=== PATIENT | male | born 1960 | race Caucasian/White ===

== ENCOUNTER 2018-01-03 12:15 | Inpatient (IN) | payer OTHER ==
[~2018-01-03] VITALS: Ht 172.7 cm; Wt 64.0 kg
[2018-01-03] MEDS ORDERED: ONDANSETRON INJ 2 MG/ML 2 ML VIAL IV STA (12:27)
[2018-01-03] MEDS ORDERED: SODIUM CHLORIDE 0.9% 1000ML 1,000 ML IV STA (12:27)
[2018-01-03] MEDS ORDERED: ATROPINE SULFATE 0.1 MG/ML 5ML SYR IV STA ×2 (12:42→20:37)
[2018-01-03 12:57] LABS: BASO % 0.1 %; BASO ABS # 0.01 K/uL (0-0.2); EOS % 0.5 %; EOS ABS # 0.05 K/uL (0-0.5); HEMATOCRIT 48.7 % (42-52); IG# 0.02 K/uL (0.00-0.02); LYMPH % 12.7 %; LYMPH ABS # 1.26 K/uL (1.2-3.4); MEAN CELL VOLUME 92.6 fL (80-100); MEAN CORPUSCULAR HEMOGLOBIN 32.3 pg (25-34); MEAN CORPUSCULAR HGB CONC 34.9 g/dl (32-36); MONO % 2.8 %; MONO ABS # 0.28 K/uL (0.11-0.59); NEUT % 83.7 %; NEUT ABS # 8.27 K/uL (1.4-6.5); PLATELET COUNT 138 K/uL (130-400); RED CELL DISTRIBUTION WIDTH CV 13.2 % (11.5-14.5); RED CELL DISTRIBUTION WIDTH SD 45.1 fL (36.4-46.3); WHITE BLOOD COUNT 9.89 K/uL (4.8-10.8)
[2018-01-03 13:03] LABS: ISTAT CREATININE 1.2 mg/dl (0.6-1.3); ISTAT IONIZED CALCIUM 1.06 mmol/l (1.12-1.32); ISTAT POTASSIUM 4.4 mEq/L (3.3-5.0)
[2018-01-03 13:11] LABS: INR 0.9 (0.9-1.1); PTT PATIENT 20.6 SECONDS (21.0-31.0)
[2018-01-03 13:15] LABS: CALCIUM 9.3 mg/dl (8.5-10.1); CREATININE 1.25 mg/dl (0.60-1.40); POTASSIUM 4.2 mmol/L (3.5-5.1)
--- NOTE | 2018-01-03 13:15 | DIAGNOSTIC IMAGING REPORT ---
SINGLE VIEW CHEST CLINICAL HISTORY: Dyspnea. FINDINGS: An AP, portable, upright chest radiograph is obtained. No prior studies are available for comparison at the time of dictation. The examination is degraded by portable technique and patient rotation. The cardiomediastinal silhouette is unremarkable. Emphysematous change is suggested. Mild bibasilar atelectasis is observed. No airspace consolidation or large pleural effusion is identified. A small calcified granuloma is noted at the left lung base. No pneumothorax is seen. The bony thorax is grossly intact. IMPRESSION: 1. Suspect emphysema. 2. No airspace consolidation or pleural effusion is identified. Electronically signed by: Josef Vazquez M.D. 01/03/2018 1:14 PM Dictated Date/Time: 01/03/2018 1:11 PM
--- NOTE | 2018-01-03 13:27 | DIAGNOSTIC IMAGING REPORT ---
CT SCAN OF THE BRAIN WITHOUT IV CONTRAST CLINICAL HISTORY: Lower extremity weakness. Blurry vision. COMPARISON STUDY: No priors. TECHNIQUE: Unenhanced axial CT scan of the brain is performed from the vertex to the skull base. A dose lowering technique was utilized adhering to the principles of ALARA. CT DOSE: 537.48 mGy.cm FINDINGS: Brain parenchyma: The brain parenchyma is normal in appearance. There is no hemorrhage, mass effect, or evidence of acute territorial ischemia by CT criteria. Pappas-white matter is preserved. No extra-axial fluid collection is seen. There are small foci of gas within the cavernous sinus and within the cisterns at the skull base. This is likely related to IV placement. Ventricles, sulci, cisterns: Normal in configuration. Intracranial vasculature: There is atherosclerotic calcification of the cavernous carotid arteries. Calvarium: Unremarkable. Sinuses and mastoids: The visualized paranasal sinuses are clear. There is a trace left mastoid effusion. The right mastoid air cells are well pneumatized. Orbits: The bony orbits are grossly intact. IMPRESSION: 1. There is no hemorrhage, mass effect, or evidence of acute territorial ischemia by CT criteria. 2. Small foci of gas within the cavernous sinuses and the cisterns at the skull base are likely related to IV placement. Electronically signed by: Josef Vazquez M.D. 01/03/2018 1:25 PM Dictated Date/Time: 01/03/2018 1:23 PM
[2018-01-03 13:32] LABS: CKMB 2.1 ng/ml (0.5-3.6); TOTAL PROTEIN 8.1 gm/dl (6.4-8.2)
[2018-01-03 13:54] LABS: INFLUENZA B ANTIGEN Neg for Influ B (NEG)
[2018-01-03] MEDS ORDERED: NURSING VERBAL MED ORDER ONE ×2 (14:00→18:00)
[2018-01-03] MEDS ORDERED: OPTIRAY 320 IV PRN (14:00)
--- NOTE | 2018-01-03 14:23 | DIAGNOSTIC IMAGING REPORT ---
CT ANGIOGRAM OF THE CHEST CLINICAL HISTORY: Atypical chest pain. COMPARISON STUDY: Chest x-ray dated 01/03/2018. TECHNIQUE: Following the IV administration of 101 cc of Optiray 320, CT angiogram of the chest was performed from the upper abdomen to the thoracic inlet utilizing the pulmonary embolus protocol. Images are reviewed in the axial, sagittal, and coronal planes. 3-D MIPS images are created and assessed. IV contrast was administered without complication. A dose lowering technique was utilized adhering to the principles of ALARA. CT DOSE: 299.71 mGy.cm FINDINGS: Thyroid: Imaged portions of the thyroid gland are normal in size and attenuation. Thoracic aorta: There is mild atherosclerotic calcification of the thoracic aorta, which is normal in caliber and demonstrates 4-vessel variant arch anatomy. No dissection is seen. Pulmonary vasculature: The pulmonary trunk is normal in caliber. There are no filling defects identified in main, lobar, or segmental pulmonary branches to suggest pulmonary embolus. Heart: The heart is top normal in size and without pericardial effusion. There are coronary artery calcifications. Lungs and pleural spaces: Moderate emphysematous change is identified. No airspace consolidation or pleural effusion is seen. The trachea and central airways are clear. Dependent atelectasis is noted. Linear scarring versus atelectasis is present at both lung bases. There is an 8 mm pulmonary nodule at the left lung base seen on image #97. This contains a punctate calcification. Mediastinum: There is no mediastinal lymphadenopathy. Beatrice: Clear. Axillae: There is no axillary lymphadenopathy. Upper abdomen: The liver is enlarged and there is severe hepatic steatosis. Partially a small hiatal hernia is noted. Surgical clips are suggested in the upper abdomen. Skeletal structures: No lytic or blastic bony lesions are seen. IMPRESSION: 1. There is no evidence of pulmonary embolus in the main, lobar, or segmental pulmonary arteries. 2. Emphysema. 3. There is no airspace consolidation or pleural effusion. 4. An 8 mm indeterminant pulmonary nodule is seen at the left lung base. This should be followed as per the Fleischner criteria. See below. 5. Severe hepatic steatosis. 6. Additional findings as above. Please refer to below summary of Fleischner criteria recommendations for follow-up of incidental CT nodules (Amilcar Walls, Guidelines for management of small pulmonary nodules detected on CT scans: A statement from the Fleischner Society, Radiology 237: [phone].) SOLID NODULES Solitary nodule size: <6 mm * low risk patients: no follow-up needed * high risk patients: optional CT at 12 months Solitary nodule size: 6-8 mm * low risk patients: follow-up at 6-12 months, then consider further follow-up at 18-24 months * high risk patients: initial follow-up CT at 6-12 months and then at 18-24 months if no change Solitary nodule size: >8 mm * either low or high risk patients - consider follow-up CT at 3 months, and/or CT-PET, and/or biopsy Multiple nodules size: <6 mm * low risk patients: no routine follow-up * high risk patients: optional CT at 12 months Multiple nodules size: 6-8 mm * low risk patients: follow-up at 3-6 months, then consider further follow-up at 18-24 months * high risk patients: follow-up at 3-6 months, then at 18-24 months if no change Multiple nodules size: >8 mm * low risk patients: follow-up at 3-6 months, then consider further follow-up at 18-24 months * high risk patients: follow-up at 3-6 months, then at 18-24 months if no change Note: newly detected indeterminate nodule in persons 35 years of age or older. * low risk patients: minimal or absent history of smoking and/or other known risk factors * high risk patients: history of smoking or of other known risk factors (e.g. first degree relative with lung cancer, or exposure to asbestos, radon, uranium) * if a nodule up to 8 mm is partly solid or is ground glass further follow-up is required after 24 months to exclude possible slow growing adenocarcinoma (TONY) SUBSOLID NODULES Solitary pure ground-glass nodule * nodule size <6 mm - no CT follow-up required * nodule size >=6 mm - follow-up CT at 6-12 months, then every 2 years until 5 years Solitary part-solid nodule * nodule size <6 mm - no CT follow-up required * nodule size >=6 mm - follow-up CT at 3-6 months. If unchanged, and solid component remains <6 mm, then annual follow-up for 5 years Multiple subsolid nodules * nodule size <6 mm - follow-up CT at 3-6 months, consider further follow-up at 2 and 4 years if stable * nodule size >=6 mm - follow-up CT at 3-6 months, subsequent management based on the most suspicious nodule(s) Electronically signed by: Josef Vazquez M.D. 01/03/2018 2:21 PM Dictated Date/Time: 01/03/2018 2:14 PM
--- NOTE | 2018-01-03 14:43 | EMERGENCY ROOM VISIT NOTE ---
ED Visit Note First contact with patient: 12:18 I did evaluate and examine this patient myself. I did guide management for the patient. I agree with the PA's assessment as discussed. Please see the PAs dictation for further details. I did independently review the x-rays, CT scan, twelve-lead EKG and blood work. The patient is presenting with sudden onset of vomiting with shortness of breath. He denies any abdominal pain. He states he has some tightness to his chest. He feels weak all over. His examination is remarkable for bradycardia with a heart rate in the 40s. He also has some tenderness in the epigastric region but he thinks this is from the multiple episodes of vomiting. He did not notice any pain prior to palpation of the abdomen. His EKG shows sinus bradycardia. He did continue to dip down into the 30s. He is normotensive but he complained of severe shortness of breath. I did treat him with atropine 0.5 mg IV. His heart rate did go up into the 60s and 70s. He did feel somewhat better. His d-dimer and troponin are elevated. We did do a CT of the chest which did not show any evidence of pulmonary embolism. I did reassess the patient. His heart rate is in the 60s. He is feeling better. He has no wheezing on auscultation. He will be admitted to the hospital for further evaluation and cardiology consultation. I have personally spent 33 minutes of critical care time in the direct management of this patient. This includes bedside care, interpretation of diagnostic studies and testing, discussion with consultants and patient, and other required patient management activities. This time is in excess of all separately billable procedures.
[2018-01-03] MEDS ORDERED: ASPI81TA28 PO (14:56)
--- NOTE | 2018-01-03 15:05 | History and Physical ---
History & Physical Date & Time of Service: Jan 03, 2018 at 15:04 Chief Complaint: Sob,Nausea Primary Care Physician: No Doctor, Assigned History of Present Illness Pleasant 57 yo male states that today he woke up at 7 after camping at the [facility]. He states that at approx. 8 o clock, he began drinking coffee when he subsequently developed severe nausea and threw up food contents which was mainly liquid. No blood. Throughout the morning, the nausea did not improve, and patient began to dry heave. Patient however, denies any chest pain Patient however does state dizziness, blurry vision. Patient felt like he was going to pass out. Patient denies any cardiac history in the past. Patient is somewhat of a poor historian as he does not enjoy answering questions regarding his history. When he arrived at the ER, he was found to be bradycardic. Patient was then given one dose of atropine and it raised his HR from high 30s to 60s. Admission was called. Past Medical/Surgical History COPD: does no take any meds. vascular disease iliac artery stenosis surgically repaired long midline scar. only takes aspirin cluster disease botox injections lung nodule Family History Father from colon cancer in his 80s Mother of heart disease 70s Coronoary artery disease. Social History Smoking Status: Current Every Day Smoker (half a pack a day. smokes firs cgg as soon as he wakes up. a month ago cut down to apack. 19 stated smoking.) Alcohol Use: none Immunizations History of Influenza Vaccine: Unknown History of Tetanus Vaccine?: Unknown History of Pneumococcal: Unknown History of Hepatitis B Vaccine: Unknown Allergies Uncoded Allergies: STEROIDS (Adverse Reaction, Severe, AGITATION, 01/03/18) Home Medications Scheduled Aspirin (Aspirin Ec), 81 MG PO DAILY Review of Systems Constitutional: No fever Eyes: No worsening of vision ENT: No hearing loss Respiratory: No cough Cardiovascular: No chest pain Abdomen: + pain, + nausea, + vomiting Musculoskeletal: No joint pain Neurologic: No memory loss Psychiatric: No depression symptoms Endocrine: No fatigue Hematologic / Lymphatic: No abnormal bleeding/bruising Integumentary: No rash Allergic / Immunologic: No environmental allergies Physical Exam Vital Signs Date Time Temp Pulse Resp B/P (MAP) Pulse Ox O2 Delivery O2 Flow Rate FiO2 01/03/18 14:20 63 18 167/94 97 Room Air 01/03/18 13:45 64 16 99 3/31/18 13:40 162/97 01/03/18 13:32 134/70 01/03/18 13:30 66 17 01/03/18 13:25 72 20 151/95 100 Room Air 01/03/18 13:20 151/95 01/03/18 13:05 36.4 01/03/18 13:01 96 Room Air 01/03/18 13:01 99 Room Air 01/03/18 13:00 59 15 181/98 94 01/03/18 12:58 57 20 170/95 96 Room Air 01/03/18 12:55 170/95 01/03/18 12:51 48 01/03/18 12:43 99 Room Air 01/03/18 12:16 55 20 150/86 99 Room Air General Appearance: WD/WN, no apparent distress Head: normocephalic Eyes: normal inspection ENT: normal ENT inspection Neck: supple, no adenopathy Respiratory/Chest: chest non-tender, lungs clear, normal breath sounds Cardiovascular: regular rate, rhythm, no edema Abdomen/GI: normal bowel sounds, non tender, soft Back: normal inspection Extremities/Musculoskelatal: normal inspection Skin: normal color Lymphatic: no adenopathy Diagnostics Laboratory Results Results Past 24 Hours Test 01/03/18 12:30 01/03/18 12:35 01/03/18 12:49 01/03/18 12:53 Range/Units Influenza Type A Antigen Neg for Influ A NEG Influenza Type B Antigen Neg for Influ B NEG White Blood Count 9.89 4.8-10.8 K/uL Red Blood Count 5.26 4.7-6.1 M/uL Hemoglobin 17.0 14.0-18.0 g/dL Hematocrit 48.7 42-52 % Mean Corpuscular Volume 92.6 80-100 fL Mean Corpuscular Hemoglobin 32.3 25-34 pg Mean Corpuscular Hemoglobin Concent 34.9 32-36 g/dl Platelet Count 138 130-400 K/uL Mean Platelet Volume 11.0 7.4-10.4 fL Neutrophils (%) (Auto) 83.7 % Lymphocytes (%) (Auto) 12.7 % Monocytes (%) (Auto) 2.8 % Eosinophils (%) (Auto) 0.5 % Basophils (%) (Auto) 0.1 % Neutrophils # (Auto) 8.27 1.4-6.5 K/uL Lymphocytes # (Auto) 1.26 1.2-3.4 K/uL Monocytes # (Auto) 0.28 0.11-0.59 K/uL Eosinophils # (Auto) 0.05 0-0.5 K/uL Basophils # (Auto) 0.01 0-0.2 K/uL RDW Standard Deviation 45.1 36.4-46.3 fL RDW Coefficient of Variation 13.2 11.5-14.5 % Immature Granulocyte % (Auto) 0.2 % Immature Granulocyte # (Auto) 0.02 0.00-0.02 K/uL Prothrombin Time 9.7 9.0-12.0 SECONDS Prothromb Time International Ratio 0.9 0.9-1.1 Activated Partial Thromboplast Time 20.6 21.0-31.0 SECONDS Partial Thromboplastin Ratio 0.8 D-Dimer 1420 0-500 ug/L FEU Sodium Level 136 136-145 mmol/L Potassium Level 4.2 3.5-5.1 mmol/L Chloride Level 106 98-107 mmol/L Carbon Dioxide Level 21 21-32 mmol/L Anion Gap 9.0 15.0 16-25 mmol/L Blood Urea Nitrogen 18 7-18 mg/dl Creatinine 1.25 0.60-1.40 mg/dl Est Creatinine Clear Calc Drug Dose 61.4 ml/min Estimated GFR () 74.7 Estimated GFR (Non- 64.4 BUN/Creatinine Ratio 14.8 10-20 Random Glucose 123 70-99 mg/dl Calcium Level 9.3 8.5-10.1 mg/dl Magnesium Level 2.0 1.8-2.4 mg/dl Total Bilirubin 0.6 0.2-1 mg/dl Aspartate Amino Transf (AST/SGOT) 46 15-37 U/L Alanine Aminotransferase (ALT/SGPT) 93 12-78 U/L Alkaline Phosphatase 63 45-117 U/L Total Creatine Kinase 147 39-308 U/L Creatine Kinase MB 2.1 0.5-3.6 ng/ml Creatine Kinase MB Ratio 1.4 0-3.0 Troponin I 0.080 0-0.045 ng/ml Total Protein 8.1 6.4-8.2 gm/dl Albumin 4.0 3.4-5.0 gm/dl Globulin 4.1 2.5-4.0 gm/dl Albumin/Globulin Ratio 1.0 0.9-2 Lipase 119 73-393 U/L Thyroid Stimulating Hormone (TSH) 0.878 0.300-4.500 uIu/ml Lyme Disease IgG Antibody NEG NEG Lyme Disease IgM Antibody NEG NEG Bedside Hemoglobin 17.3 14.0-18.0 g/dl Bedside Hematocrit 51 42-52 % Bedside Sodium 140 135-144 mEq/L Bedside Potassium 4.4 3.3-5.0 mEq/L Bedside Chloride 104 101-112 mEq/L Bedside Total CO2 26 24-31 mEq/l Bedside Blood Urea Nitrogen 24 7-18 mg/dl Bedside Creatinine 1.2 0.6-1.3 mg/dl Bedside Glucose (other) 128 70-99 mg/dl Bedside Ionized Calcium (Ignacio) 1.06 1.12-1.32 mmol/l Bedside Lactic Acid Venous 1.75 0.90-1.70 mmol/L Test 01/03/18 13:40 Range/Units Urine Color YELLOW Urine Appearance CLEAR CLEAR Urine pH 6.5 4.5-7.5 Urine Specific [place] 1.019 1.000-1.030 Urine Protein NEG NEG Urine Glucose (UA) NEG NEG Urine Ketones 2+ NEG Urine Occult Blood NEG NEG Urine Nitrite NEG NEG Urine Bilirubin NEG NEG Urine Urobilinogen NEG NEG Urine Leukocyte Esterase NEG NEG Microbiology Results 01/03/18 Blood Culture, Received Pending 01/03/18 Blood Culture, Received Pending EKG Sinus bradycardia with Premature atrial complexes Low voltage QRS Cannot rule out Inferior infarct , age undetermined Abnormal ECG When compared with ECG of 03-JAN-2018 20:35, (unconfirmed) Impression Assessment and Plan N/V and SOB, Symptomatic bradycardia in a 57 yo male who does not regularly followup with PCP He does have history of cluster headaches SYMPTOMATIC BRADYCARDIA will admit to tele Patient received dose of atropine in ER. Since then no repeat dosing required. BP has remained somewhat elevated trop mildly elevated will repeat future trop Elevated trop Mildly elevated. unsure if MT consulted Cardio if second set is trending up will place on heparin Elevated BP Likely HTN will hold off meds due to bradycardia. Update: Patient diagnosed with MT Trop elevated to .3 will start heparin. will trend 3rd set d/w cardiology. Also ordered Aspirin. Advanced Directives Existing Advance Directive: No Existing Living Will: No Existing Health Care Proxy: No Resuscitation Status VTE Prophylaxis Will order VTE Prophylaxis: Yes
[2018-01-03] MEDS ORDERED: NITROGLYCERIN 0.4 MG SL PER TAB CHARGE SL PRN (16:30)
--- NOTE | 2018-01-03 16:32 | EMERGENCY ROOM VISIT NOTE ---
History First contact with patient: 12:18 Chief Complaint: SHORTNESS OF BREATH Stated Complaint: SOB,NAUSEA Nursing Triage Summary: Pt presents with c/o "generally not feeling well, can't get comfortable, n/v, sob." Denies cp or cough. Sx began this morning at 0800. Pt reports hx of double bypass in 2015 at [facility]. History of Present Illness The patient is a 57 year old male who presents to the Emergency Room via private vehicle accompanied by 2 male friends with complaints of "shortness of breath, nausea". 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 He states that he was feeling fine up until 8 AM when he was eating breakfast and he developed nausea , vomiting, shortness of breath, bilateral leg weakness, and blurred vision. He states that he has a hard time breathing. No real chest pain. He states that he does not feel well. He states that prior to this occurring he felt no symptoms. This was all of abrupt onset. He denies any heart history. He rates his overall discomfort as a 4/10. Review of Systems A complete 10-point Review of Systems was discussed with the patient, with pertinent positives and negatives listed in the History of Present Illness. All remaining Review of Systems questions can be considered negative unless otherwise specified. Past Medical/Surgical History Aortic bypass in the pelvis, COPD Social History Smoking Status: Current Every Day Smoker (half a pack a day. smokes firs cgg as soon as he wakes up. a month ago cut down to apack. 19 stated smoking.) Patient is from [facility]. Current/Historical Medications Scheduled Aspirin (Aspirin Ec), 81 MG PO DAILY Physical Exam Vital Signs Date Time Temp Pulse Resp B/P (MAP) Pulse Ox O2 Delivery O2 Flow Rate FiO2 01/03/18 15:52 54 20 184/90 96 Room Air 01/03/18 14:20 63 18 167/94 97 Room Air 01/03/18 13:45 64 16 99 01/03/18 13:40 162/97 01/03/18 13:32 134/70 01/03/18 13:30 66 17 01/03/18 13:25 72 20 151/95 100 Room Air 01/03/18 13:20 151/95 01/03/18 13:05 36.4 01/03/18 13:01 96 Room Air 01/03/18 13:01 99 Room Air 01/03/18 13:00 59 15 181/98 94 01/03/18 12:58 57 20 170/95 96 Room Air 01/03/18 12:55 170/95 01/03/18 12:51 48 01/03/18 12:43 99 Room Air 01/03/18 12:16 55 20 150/86 99 Room Air Physical Exam VITAL SIGNS - Vital signs and nursing notes were reviewed. Bradycardic. Otherwise stable. GENERAL - 57-year-old male appearing his stated age who is in no acute distress. Communicates well with provider and answers questions appropriately. SKIN - Without rashes. No meningeal petechial rash HEAD - NC/AT. EYES - PERRL with EOMI bilaterally. Sclera anicteric. EARS - No deformities of external structures noted on gross examination bilaterally. No pain elicited with palpation of the tragus bilaterally. External auditory canals without discharge or otorrhea. Tympanic membranes pearly pappas without retraction or bulging. No fluid or purulent material visualized behind the TM. Handle of malleus, umbo, cone of light, pars tensa/ flaccid all easily visualized. NOSE - Midline and without cyanosis. No epistaxis or purulent drainage noted. MOUTH/OROPHARYNX - Without perioral cyanosis. NECK - Neck with FROM. Supple to palpation. No nuchal rigidity. LUNGS - Chest wall symmetric without accessory muscle use, intercostals retractions, or central cyanosis. Normal vesicular breath sounds CTA B/L. No wheezes, rales, or rhonchi appreciated. CARDIAC -bradycardic, no murmur with normal S1/S2. No murmur, rubs, or gallops appreciated. ABDOMEN - Abdominal contour normal without pulsations or visible masses. BS normoactive all four quadrants. No tenderness, palpable masses, hepatosplenomegaly, or ascites noted. EXTREMITIES - No clubbing or peripheral cyanosis. No pretibial edema present. Neurovascular intact lower extremities. +5/5 strength noted in UE/LE bilaterally. NEUROLOGIC - Cranial nerves II through XII grossly intact. No neurovascular deficit appreciated on exam. Sensory intact to light touch throughout. PSYCH - A&Ox3 and cooperates fully with examiner. Pt is very pleasant and interacts well with examiner. Medical Decision & Procedures ER Provider Diagnostic Interpretation: CT SCAN OF THE BRAIN WITHOUT IV CONTRAST CLINICAL HISTORY: Lower extremity weakness. Blurry vision. COMPARISON STUDY: No priors. TECHNIQUE: Unenhanced axial CT scan of the brain is performed from the vertex to the skull base. A dose lowering technique was utilized adhering to the principles of ALARA. CT DOSE: 537.48 mGy.cm FINDINGS: Brain parenchyma: The brain parenchyma is normal in appearance. There is no hemorrhage, mass effect, or evidence of acute territorial ischemia by CT criteria. Pappas-white matter is preserved. No extra-axial fluid collection is seen. There are small foci of gas within the cavernous sinus and within the cisterns at the skull base. This is likely related to IV placement. Ventricles, sulci, cisterns: Normal in configuration. Intracranial vasculature: There is atherosclerotic calcification of the cavernous carotid arteries. Calvarium: Unremarkable. Sinuses and mastoids: The visualized paranasal sinuses are clear. There is a trace left mastoid effusion. The right mastoid air cells are well pneumatized. Orbits: The bony orbits are grossly intact. IMPRESSION: 1. There is no hemorrhage, mass effect, or evidence of acute territorial ischemia by CT criteria. 2. Small foci of gas within the cavernous sinuses and the cisterns at the skull base are likely related to IV placement. Electronically signed by: Josef Vazquez M.D. 01/03/2018 1:25 PM Dictated Date/Time: 01/03/2018 1:23 PM SINGLE VIEW CHEST CLINICAL HISTORY: Dyspnea. FINDINGS: An AP, portable, upright chest radiograph is obtained. No prior studies are available for comparison at the time of dictation. The examination is degraded by portable technique and patient rotation. The cardiomediastinal silhouette is unremarkable. Emphysematous change is suggested. Mild bibasilar atelectasis is observed. No airspace consolidation or large pleural effusion is identified. A small calcified granuloma is noted at the left lung base. No pneumothorax is seen. The bony thorax is grossly intact. IMPRESSION: 1. Suspect emphysema. 2. No airspace consolidation or pleural effusion is identified. Electronically signed by: Josef Vazquez M.D. 01/03/2018 1:14 PM Dictated Date/Time: 01/03/2018 1:[address] ANGIOGRAM OF THE CHEST CLINICAL HISTORY: Atypical chest pain. COMPARISON STUDY: Chest x-ray dated 01/03/2018. TECHNIQUE: Following the IV administration of 101 cc of Optiray 320, CT angiogram of the chest was performed from the upper abdomen to the thoracic inlet utilizing the pulmonary embolus protocol. Images are reviewed in the axial, sagittal, and coronal planes. 3-D MIPS images are created and assessed. IV contrast was administered without complication. A dose lowering technique was utilized adhering to the principles of ALARA. CT DOSE: 299.71 mGy.cm FINDINGS: Thyroid: Imaged portions of the thyroid gland are normal in size and attenuation. Thoracic aorta: There is mild atherosclerotic calcification of the thoracic aorta, which is normal in caliber and demonstrates 4-vessel variant arch anatomy. No dissection is seen. Pulmonary vasculature: The pulmonary trunk is normal in caliber. There are no filling defects identified in main, lobar, or segmental pulmonary branches to suggest pulmonary embolus. Heart: The heart is top normal in size and without pericardial effusion. There are coronary artery calcifications. Lungs and pleural spaces: Moderate emphysematous change is identified. No airspace consolidation or pleural effusion is seen. The trachea and central airways are clear. Dependent atelectasis is noted. Linear scarring versus atelectasis is present at both lung bases. There is an 8 mm pulmonary nodule at the left lung base seen on image #97. This contains a punctate calcification. Mediastinum: There is no mediastinal lymphadenopathy. Beatrice: Clear. Axillae: There is no axillary lymphadenopathy. Upper abdomen: The liver is enlarged and there is severe hepatic steatosis. Partially a small hiatal hernia is noted. Surgical clips are suggested in the upper abdomen. Skeletal structures: No lytic or blastic bony lesions are seen. IMPRESSION: 1. There is no evidence of pulmonary embolus in the main, lobar, or segmental pulmonary arteries. 2. Emphysema. 3. There is no airspace consolidation or pleural effusion. 4. An 8 mm indeterminant pulmonary nodule is seen at the left lung base. This should be followed as per the Fleischner criteria. See below. 5. Severe hepatic steatosis. 6. Additional findings as above. Please refer to below summary of Fleischner criteria recommendations for follow-up of incidental CT nodules (Amilcar Walls, Guidelines for management of small pulmonary nodules detected on CT scans: A statement from the Fleischner Society, Radiology 237: [phone].) SOLID NODULES Solitary nodule size: <6 mm * low risk patients: no follow-up needed * high risk patients: optional CT at 12 months Solitary nodule size: 6-8 mm * low risk patients: follow-up at 6-12 months, then consider further follow-up at 18-24 months * high risk patients: initial follow-up CT at 6-12 months and then at 18-24 months if no change Solitary nodule size: >8 mm * either low or high risk patients - consider follow-up CT at 3 months, and/or CT-PET, and/or biopsy Multiple nodules size: <6 mm * low risk patients: no routine follow-up * high risk patients: optional CT at 12 months Multiple nodules size: 6-8 mm * low risk patients: follow-up at 3-6 months, then consider further follow-up at 18-24 months * high risk patients: follow-up at 3-6 months, then at 18-24 months if no change Multiple nodules size: >8 mm * low risk patients: follow-up at 3-6 months, then consider further follow-up at 18-24 months * high risk patients: follow-up at 3-6 months, then at 18-24 months if no change Note: newly detected indeterminate nodule in persons 35 years of age or older. * low risk patients: minimal or absent history of smoking and/or other known risk factors * high risk patients: history of smoking or of other known risk factors (e.g. first degree relative with lung cancer, or exposure to asbestos, radon, uranium) * if a nodule up to 8 mm is partly solid or is ground glass further follow-up is required after 24 months to exclude possible slow growing adenocarcinoma (TONY) SUBSOLID NODULES Solitary pure ground-glass nodule * nodule size <6 mm - no CT follow-up required * nodule size >=6 mm - follow-up CT at 6-12 months, then every 2 years until 5 years Solitary part-solid nodule * nodule size <6 mm - no CT follow-up required * nodule size >=6 mm - follow-up CT at 3-6 months. If unchanged, and solid component remains <6 mm, then annual follow-up for 5 years Multiple subsolid nodules * nodule size <6 mm - follow-up CT at 3-6 months, consider further follow-up at 2 and 4 years if stable * nodule size >=6 mm - follow-up CT at 3-6 months, subsequent management based on the most suspicious nodule(s) Electronically signed by: Josef Vazquez M.D. 01/03/2018 2:21 PM Dictated Date/Time: 01/03/2018 2:14 PM Laboratory Results 01/03/18 12:35 Red Blood Count 5.26, Mean Corpuscular Volume 92.6, Mean Corpuscular Hemoglobin 32.3, Mean Corpuscular Hemoglobin Concent 34.9, Mean Platelet Volume 11.0, Neutrophils (%) (Auto) 83.7, Lymphocytes (%) (Auto) 12.7, Monocytes (%) (Auto) 2.8, Eosinophils (%) (Auto) 0.5, Basophils (%) (Auto) 0.1, Neutrophils # (Auto) 8.27, Lymphocytes # (Auto) 1.26, Monocytes # (Auto) 0.28, Eosinophils # (Auto) 0.05, Basophils # (Auto) 0.01 01/03/18 12:35 Test 01/03/18 12:30 01/03/18 12:35 01/03/18 12:49 01/03/18 12:53 Influenza Type A Antigen Neg for Influ A (NEG) Influenza Type B Antigen Neg for Influ B (NEG) White Blood Count 9.89 K/uL (4.8-10.8) Red Blood Count 5.26 M/uL (4.7-6.1) Hemoglobin 17.0 g/dL (14.0-18.0) Hematocrit 48.7 % (42-52) Mean Corpuscular Volume 92.6 fL (80-100) Mean Corpuscular Hemoglobin 32.3 pg (25-34) Mean Corpuscular Hemoglobin Concent 34.9 g/dl (32-36) Platelet Count 138 K/uL (130-400) Mean Platelet Volume 11.0 fL (7.4-10.4) Neutrophils (%) (Auto) 83.7 % Lymphocytes (%) (Auto) 12.7 % Monocytes (%) (Auto) 2.8 % Eosinophils (%) (Auto) 0.5 % Basophils (%) (Auto) 0.1 % Neutrophils # (Auto) 8.27 K/uL (1.4-6.5) Lymphocytes # (Auto) 1.26 K/uL (1.2-3.4) Monocytes # (Auto) 0.28 K/uL (0.11-0.59) Eosinophils # (Auto) 0.05 K/uL (0-0.5) Basophils # (Auto) 0.01 K/uL (0-0.2) RDW Standard Deviation 45.1 fL (36.4-46.3) RDW Coefficient of Variation 13.2 % (11.5-14.5) Immature Granulocyte % (Auto) 0.2 % Immature Granulocyte # (Auto) 0.02 K/uL (0.00-0.02) Prothrombin Time 9.7 SECONDS (9.0-12.0) Prothromb Time International Ratio 0.9 (0.9-1.1) Activated Partial Thromboplast Time 20.6 SECONDS (21.0-31.0) Partial Thromboplastin Ratio 0.8 D-Dimer 1420 ug/L FEU (0-500) Est Creatinine Clear Calc Drug Dose 61.4 ml/min Estimated GFR () 74.7 Estimated GFR (Non- 64.4 BUN/Creatinine Ratio 14.8 (10-20) Calcium Level 9.3 mg/dl (8.5-10.1) Magnesium Level 2.0 mg/dl (1.8-2.4) Total Bilirubin 0.6 mg/dl (0.2-1) Aspartate Amino Transf (AST/SGOT) 46 U/L (15-37) Alanine Aminotransferase (ALT/SGPT) 93 U/L (12-78) Alkaline Phosphatase 63 U/L (45-117) Total Creatine Kinase 147 U/L (39-308) Creatine Kinase MB 2.1 ng/ml (0.5-3.6) Creatine Kinase MB Ratio 1.4 (0-3.0) Troponin I 0.080 ng/ml (0-0.045) Total Protein 8.1 gm/dl (6.4-8.2) Albumin 4.0 gm/dl (3.4-5.0) Globulin 4.1 gm/dl (2.5-4.0) Albumin/Globulin Ratio 1.0 (0.9-2) Lipase 119 U/L (73-393) Thyroid Stimulating Hormone (TSH) 0.878 uIu/ml (0.300-4.500) Lyme Disease IgG Antibody NEG (NEG) Lyme Disease IgM Antibody NEG (NEG) Bedside Hemoglobin 17.3 g/dl (14.0-18.0) Bedside Hematocrit 51 % (42-52) Bedside Sodium 140 mEq/L (135-144) Bedside Potassium 4.4 mEq/L (3.3-5.0) Bedside Chloride 104 mEq/L (101-112) Bedside Total CO2 26 mEq/l (24-31) Anion Gap 15.0 mmol/L (16-25) Bedside Blood Urea Nitrogen 24 mg/dl (7-18) Bedside Creatinine 1.2 mg/dl (0.6-1.3) Bedside Glucose (other) 128 mg/dl (70-99) Bedside Ionized Calcium (Ignacio) 1.06 mmol/l (1.12-1.32) Bedside Lactic Acid Venous 1.75 mmol/L (0.90-1.70) Test 01/03/18 13:40 Urine Color YELLOW Urine Appearance CLEAR (CLEAR) Urine pH 6.5 (4.5-7.5) Urine Specific Rarden 1.019 (1.000-1.030) Urine Protein NEG (NEG) Urine Glucose (UA) NEG (NEG) Urine Ketones 2+ (NEG) Urine Occult Blood NEG (NEG) Urine Nitrite NEG (NEG) Urine Bilirubin NEG (NEG) Urine Urobilinogen NEG (NEG) Urine Leukocyte Esterase NEG (NEG) Medications Administered Medications (Trade) Dose Ordered Sig/Sanford Route Start Time Stop Time Status Last Admin Dose Admin Sodium Chloride 1,000 ml @ 999 mls/hr Q1H1M STAT IV 01/03/18 12:27 01/03/18 13:27 DC 01/03/18 12:52 999 MLS/HR Ondansetron HCl (Zofran Inj) 4 mg NOW STAT IV 01/03/18 12:27 01/03/18 12:29 DC 01/03/18 12:49 4 MG Atropine Sulfate (Atropine Sulfate 0.1mg/ml Inj) 0.5 mg NOW STAT IV 01/03/18 12:42 01/03/18 12:44 DC 01/03/18 12:50 0.5 MG Miscellaneous Information (Nursing Verbal Med Order) 1 ea ONE ONCE N/A 01/03/18 14:00 01/03/18 14:01 DC 01/03/18 13:53 1 EA Medical Decision Patient was seen and evaluated as above in room CO6. Review was performed of nursing notes and vital signs. After obtaining a thorough history and physical examination the above work up was performed. I did call the attending to bedside given the potential severity of the patient. He presents mostly with shortness of breath, and nausea. He does appear ill on exam. Bedside EKG was performed and per my interpretation reveals sinus bradycardia, rate of 42 bpm. No evidence of DE on this EKG. Monitor was applied and continuous pulse ox monitoring was initiated. Bedside chest x-ray was also obtained and reveals perhaps emphysema but no acute process. CBC reveals no leukocytosis or anemia. Coags reveal no concerning process however d-dimer is at 1420. No evidence of emergent kidney or liver process. AST and ALT are elevated at 46 and 93 respectively. CK-MB negative however troponin is elevated at 0.080. Urine reveals 2+ ketones. Lyme test negative. Influenza negative. With the elevated d-dimer, and his dyspnea I did elect to obtain a CT of the chest looking for PE. This was negative for PE. He was given 0.5 mg of atropine IV with some rate improvement however he continued to be bradycardic in the 40s and 50s. Upon reassessment in some fluids he seemed to be doing much better in the 50s and 60s and even 70s however I do believe that further evaluation and management in the inpatient setting is warranted given his likely symptomatically cardiac, troponin elevation as well. He was given Zofran here while for the nausea. This was discussed with the admitting team, Dr. Walker for further evaluate and manage the patient. It is important note that on my exam there is no neurovascular deficit to support diagnosis of CVA. Case was discussed with the attending physician. I attest that I have personally reviewed the patient medication list. In the evaluation and treatment of this patient the following differential diagnoses were entertained: DE, PE, orthostatic hypotension, CVA, dissection, Lyme, influenza, pneumonia, sepsis, among others. Impression Primary Impression: Dyspnea Additional Impressions: Symptomatic bradycardia Elevated troponin Departure Information Dispostion Admitted as an inpatient Condition FAIR Referrals No Doctor, Assigned (PCP) Patient Instructions My [facility] Problem Qualifiers
[2018-01-03 17:04] VITALS: BP 156/88; PULSE 55; TEMP 36.5; O2SAT 98; Ht 172.7 cm; Wt 64.0 kg
[2018-01-03] MEDS ORDERED: ONDANSETRON INJ 2 MG/ML 2 ML VIAL ONE ×2 (17:50→20:43)
[2018-01-03] MEDS ORDERED: INFLUENZA ADMINISTRATION CHARGE ONE (18:00)
[2018-01-03] MEDS ORDERED: PNEUMOCOCCAL ADMINISTRATION CHARGE ONE (18:00)
[2018-01-03] MEDS ORDERED: INFLUENZA VIRUS QUAD VACCINE 0.5 ML SYR IM. ONE (18:00)
[2018-01-03] MEDS ORDERED: PNEUMOCOCCAL POLYSACCHARIDES 25 MCG/0.5 ML VIAL/SYR IM. ONE (18:00)
[2018-01-03 18:14] VITALS: BP 168/98; PULSE 49
[2018-01-03 20:17] VITALS: BP 157/74; PULSE 54; TEMP 36.9; O2SAT 98
[2018-01-03] MEDS ORDERED: ONDANSETRON INJ 2 MG/ML 2 ML VIAL IV PRN (20:45)
[2018-01-03] MEDS ORDERED: MoRPHine SULFATE 2 MG/ML CARP IV PRN (21:00)
--- NOTE | 2018-01-03 21:11 | Progress Note ---
Progress Note Date of Service Jan 03, 2018. Progress Note Nursing reported patient was having Chest discomfort . Repeat Troponin trended up from .081 to .391. Ekg was repeated which showed no sinus bradycardia similar to previous with no acute EKG changes. VS stable. He is saturating well on room air. Chest was clear to Auscultation. I started Heparin, administered Aspirin, and ordered prn Morphine. Discussed case with Dr. Dennison. NO acute intervention indicated at this time. Cardiology is on consult to see him in the day time. Resident Tracking Resident Involvement: Resident Care Provided Care Provided: Adult Hospital Medicine
[2018-01-03] MEDS ORDERED: ASPIRIN 324 MG CHEW ONE (21:12)
[2018-01-03] MEDS ORDERED: ASPIRIN 81 MG CHEW PO STA (21:14)
[2018-01-03] MEDS ORDERED: HEPARIN 25,000 UNIT/500ML D5W 500 ML IV SCH (21:30)
[2018-01-03] MEDS ORDERED: SODIUM CHLORIDE 0.9% 1000ML 1,000 ML IV SCH (21:30)
[2018-01-03] MEDS ORDERED: HEPARIN IV BOLUS 5,000 UNIT in SYRINGE 0 ML IV ONE (21:30)
[2018-01-03] MEDS ORDERED: ATROPINE SULFATE 0.1 MG/ML 5ML SYR ONE (22:45)
[2018-01-03 23:40] VITALS: BP 86/58; PULSE 94; TEMP 36.7; O2SAT 95
[2018-01-04] VITALS (18 sets, daily range): BP systolic 96–121; BP diastolic 59–76; PULSE 16–69; TEMP 36.4–36.9; O2SAT 93–99
[2018-01-04] MEDS: MoRPHine SULFATE 2 MG/ML CARP IV PRN ×2 (01:41→07:06)
[2018-01-04 05:33] LABS: PTT PATIENT 77.6 SECONDS (21.0-31.0)
[2018-01-04] MEDS: ATORVASTATIN 40 MG TAB PO SCH (08:08)
[2018-01-04] MEDS ORDERED: ASPIRIN 81 MG ECTAB PO SCH (09:00)
[2018-01-04] MEDS ORDERED: MIDAZOLAM HCL 1 MG/ML 2ML VIAL ONE (09:21)
[2018-01-04] MEDS ORDERED: FENTANYL CITRATE INJ 50 MCG/1 ML 2 ML VIAL ONE (09:22)
[2018-01-04] MEDS ORDERED: NiCARDipine HCL INJ 2.5 MG/ML 10 ML AMP ONE (09:22)
[2018-01-04] MEDS ORDERED: HEPARIN SOD (PORCINE) 1000 UNIT/ML 10 ML VIAL ONE ×2 (09:23→10:33)
[2018-01-04] MEDS ORDERED: NITROGLYCERIN/D5W 100MCG/ML 20ML SYR ONE (09:23)
--- NOTE | 2018-01-04 09:57 | CARDIOLOGY CONSULTATION ---
DATE OF CONSULTATION: 01/04/2018 PERTINENT HISTORY: Mr. Lee is a 57-year-old white male admitted yesterday with a chest pain syndrome. The patient's cardiac markers are elevated and therefore, this consultation was ordered to assist in his management. The patient was in his usual state of health until yesterday morning when he had the abrupt onset of substernal chest pressure, nausea, vomiting, and shortness of breath. The patient's symptoms waxed and waned throughout the morning and he eventually presented to the Emergency Room for further care. On arrival here, his initial evaluation was unremarkable except for mildly elevated troponin at 0.08. There were no acute EKG changes. The patient has continued with waxing and waning symptoms despite intravenous heparin, nitroglycerin and intravenous morphine. The patient has never had a prior cardiac event. He has never undergone a cardiac catheterization. He does have a history of an aortobifemoral bypass performed in 2014 at [facility]. The patient has had no premorbid exertional chest discomfort. Also, denies recent syncope, presyncope, PND, orthopnea, palpitations, lower extremity edema, and claudication. Currently, the patient is resting comfortably in bed without complaints. His is at the bedside. We have discussed the need for an urgent cardiac catheterization. PAST MEDICAL HISTORY: 1. COPD. 2. Aortobifemoral bypass -- 2014 -- [facility]. MEDICATIONS: 1. Heparin drip. 2. Aspirin 81 mg daily. 3. Lipitor 80 mg at bedtime. ALLERGIES: None. SOCIAL HISTORY: The patient is and lives with his in [place], [place]. 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 Smokes 1-1/2 pack of cigarettes daily for the last 30 years. Does not use alcohol. FAMILY HISTORY: Father had 2 separate bypass surgeries performed. of colon carcinoma at the age of 85. Mother at the age of 69 during her second attempt at bypass surgery. Her initial bypass procedure occurred when she was in her mid 50s. Siblings are healthy. REVIEW OF SYSTEMS: A 10-point review of systems was negative except for that described above. PHYSICAL EXAMINATION: GENERAL: This is a well-developed, well-nourished white male in no acute distress. VITAL SIGNS: Blood pressure is 100/65 with a regular pulse of 55. Respiratory rate is 20. The patient is afebrile at 36.9 degrees Celsius. Saturation 95% on room air. HEENT: Negative. NECK: Supple with full carotid upstrokes. No carotid bruits. Jugular venous pressure is flat at 90 degrees. There is no thyromegaly. CARDIOVASCULAR: Reveals a regular rhythm with a normal S1 and S2. No S3, S4, or murmurs are noted. LUNGS: Clear without rales, rhonchi, or wheezes. ABDOMEN: Soft and nontender without bruits. A well-healed midline scar noted. EXTREMITIES: Reveal intact radial artery pulses bilaterally. There is no peripheral edema. DATA: CBC notes hemoglobin 17.0, hematocrit 48.7, white count 9.8, platelets 138,000. Electrolytes note a sodium of 140, potassium 4.4, chloride 104, bicarbonate 26, BUN 24, creatinine 1.2, glucose 128. Initial troponin was 0.08 with followup values of 0.391 and 1.45. CK is 147 with an MB fraction of 2.1. TSH level normal at 0.87. Initial EKG notes sinus bradycardia without abnormalities. Followup tracing notes sinus bradycardia and loss of the R-wave in the inferior leads. An anteroseptal infarction cannot be fully excluded. Chest x-ray shows no acute disease. Emphysema suspected. A CT scan of the chest fails to show pulmonary embolism or aortic dissection. IMPRESSION: Mr. Lee was admitted with symptoms concerning for myocardial ischemia. Although no acute ST segment changes seen on the EKG, his troponin level is increasing. I feel that an urgent cardiac catheterization is indicated. PLAN: 1. Continue current medications. 2. Code heart alert activated.
[2018-01-04] MEDS ORDERED: TICAGRELOR 90 MG TAB PO ONE (10:10)
[2018-01-04] MEDS ORDERED: ATROPINE SULFATE 0.1 MG/ML 5ML SYR IV PRN (10:30)
[2018-01-04] MEDS ORDERED: ACETAMINOPHEN 325 MG TAB PO PRN (10:30)
[2018-01-04] MEDS ORDERED: NITROGLYCERIN 0.4 MG SL PER TAB CHARGE SL PRN (10:30)
[2018-01-04] MEDS ORDERED: ONDANSETRON INJ 8 MG in DEXTROSE 5% 50ML 50 ML IV PRN (10:30)
[2018-01-04] MEDS ORDERED: ONDANSETRON INJ 2 MG/ML 2 ML VIAL IV PRN (10:30)
[2018-01-04] MEDS ORDERED: MoRPHine SULFATE 2 MG/ML CARP IV PRN (10:30)
[2018-01-04] MEDS ORDERED: SODIUM CHLORIDE 0.9% 1000ML 1,000 ML IV SCH (10:30)
[2018-01-04] MEDS ORDERED: NURSING VERBAL MED ORDER ONE (11:15)
--- NOTE | 2018-01-04 15:22 | CARDIAC CATH REPORT ---
REPORT OF CARDIAC CATHETERIZATION AND PERCUTANEOUS CORONARY INTERVENTION INDICATION: Unstable angina, non-ST elevated TX, ongoing anginal chest discomfort in a 57-year-old hypercholesterolemic male with a known history of peripheral vascular disease. No presenting symptoms of congestive heart failure, resting [place] cardiovascular class 4 angina. PROCEDURES PERFORMED: Left heart catheterization, coronary cineangiography, left ventriculography, PCI with drug-eluting stent x1 right coronary artery, radiological interpretation and supervision. METHOD: Upon arrival in the pathology laboratory technologist, the patient was prepped and draped in usual sterile fashion. After an unsuccessful attempt at arterial access from the right radial artery, a 6-Belgian sheath was placed in the right femoral artery/bypass graft. A 6-Belgian EBU 3-/2 guiding catheter was advanced over wire under fluoroscopic guidance to the central circulation where it was aspirated and flushed. After confirmation of adequate waveform was advanced into the left main. Cineangiograms of the left coronary artery Obtained and reviewed. The catheter was removed from the body over wire and sheath was aspirated and flushed. A 6-Belgian EBU JR 3.5 guiding catheter was advanced over wire under fluoroscopic guidance to the central circulation where it was aspirated and flushed. After confirmation of adequate waveform, it was advanced into the right coronary artery, cineangiograms of the right coronary obtained and reviewed. Intravenous heparin was administered and titrated to an ACT on the order of 250 seconds. A 0.014 inch micro computer data processor wire was advanced through the guiding catheter across the area of stenosis of the apical posterior descending artery. A 2.0 mini trek 15 angioplasty catheter was positioned in the mid right coronary artery overlying an RV branch and inflated to maximum pressure with estimated balloon was withdrawn. A 2.5 Xience 18 stent was positioned in the same location and inflated to maximum pressure of less than 1 minute. Balloon was withdrawn and a 3.0 NC noncompliant balloon was advanced into the stented segment and inflated on multiple occasions to maximum pressure for less than 1 minute. Balloon was withdrawn, final cineangiograms were obtained and the wire was removed from the coronary artery. Guiding catheters were removed from the right coronary artery under fluoroscopic guidance, removed from the body over wire, the sheath was aspirated and flushed. A 6-Belgian pigtail was used to cross the aortic valve in retrograde fashion. Left ventricular end diastolic pressure was measured. Left ventriculography was performed using 36 mL of contrast dye over 3 seconds less than 450 PSI. The catheter removed from left ventricle to the aorta and continuous pressure monitored and removed from body over wire sheath was aspirated and flushed. An Angio-Seal was deployed over the right femoral artery. The patient returned to his room in good condition. COMPLICATIONS: None. FINDINGS: Left main is normal. Left anterior descending artery, first and second diagonal branches are free of significant disease. Left circumflex is large in caliber with no significant stenosis. The first marginal branch is a small to moderate in caliber with no significant stenosis. Second marginal branch is small to moderate in caliber with a proximal 50% stenosis with a microscopic clot present. Remainder of the posterolateral and marginal branches are free of significant disease. The right coronary artery is moderate in caliber with a mid 85% stenosis at the origin of a small to moderate size RV branch. The remainder of the right coronary artery is free ischemic disease. Twin posterior descending, twin posterolateral branches arising from the posterior AV extension of the right coronary artery are small but free of significant disease. The RV branches had ostial 80% stenosis. Left ventricular end diastolic pressure is normal. No significant aortic valve gradient demonstrated. Left ventriculography demonstrates normal left ventricular size and function, ejection fraction estimated at 70% with a discrete mid inferior moderate hypokinetic segment. No significant aortic valve gradient demonstrated. Final cineangiograms demonstrated no residual stenosis, no uncovered dissection, DENA grade 3 flow in the right coronary artery and in the RV branch. IMPRESSION: Successful angioplasty double lumen stent placed. RECOMMENDATIONS: For dual antiplatelet therapy for a minimum of 1 year. Medical therapy risk factors recurrent myocardial infarction.
[2018-01-04] MEDS: TICAGRELOR 90 MG TAB PO SCH (20:51)
--- NOTE | 2018-01-04 23:24 | Progress Note ---
Subjective Date of Service: Jan 04, 2018. Subjective Pt evaluation today including: conversation w/ patient Patient reports his nausea has improved today. Patient reports feeling asymptomatic at this time after his cath. Problem List Medical Problems: (1) Dyspnea Status: Acute (2) Elevated troponin Status: Acute Review of Systems Constitutional: No fever Eyes: No worsening of vision ENT: No hearing loss Respiratory: No cough Cardiac: No chest pain Abdomen: No pain Musculoskeletal: No joint pain Neurologic: No memory loss Psychiatric: No depression symptoms Heme: No abnormal bleeding/bruising Endo: No fatigue Skin: No rash All Other Systems: Reviewed and Negative Medications Current Inpatient Medications Medications (Trade) Dose Ordered Sig/[place] Route Start Time Stop Time Status Last Admin Dose Admin Ioversol (Optiray 320) 111 ml UD PRN IV 01/03/18 14:00 01/07/18 13:59 Atorvastatin Calcium (Lipitor Tab) 80 mg QAM PO 01/04/18 09:00 02/03/18 08:59 01/04/18 08:08 80 MG Nitroglycerin (Nitrostat Tab) 0.4 mg UD PRN SL 01/04/18 10:30 02/03/18 10:29 Atropine Sulfate (Atropine Sulfate 0.1mg/ml Inj) 0.5 mg ONE PRN IV 01/04/18 10:30 02/03/18 10:29 Ondansetron HCl (Zofran Inj) 4 mg Q6H PRN IV 01/04/18 10:30 02/03/18 10:29 Ondansetron HCl 8 mg/Dextrose 54 ml @ 200 mls/hr Q6H PRN IV 01/04/18 10:30 02/03/18 10:29 Aspirin (Ecotrin Tab) 81 mg QAM PO 01/05/18 09:00 02/04/18 08:59 Acetaminophen (Tylenol Tab) 650 mg Q4H PRN PO 01/04/18 10:30 02/03/18 10:29 Morphine Sulfate (MoRPHine SULFATE INJ) 2 mg Q5M PRN IV 01/04/18 10:30 01/18/18 10:29 Ticagrelor (Brilinta Tab) 90 mg BID PO 01/04/18 21:00 02/03/18 20:59 01/04/18 20:51 90 MG Objective Vital Signs Date Time Temp Pulse Resp B/P (MAP) Pulse Ox O2 Delivery O2 Flow Rate FiO2 01/04/18 19:42 36.5 54 18 121/76 (91) 93 Room Air 01/04/18 16:22 36.4 58 18 114/62 (79) 95 Nasal Cannula 2.0 01/04/18 16:00 95 Nasal Cannula 2.0 01/04/18 15:34 36.6 56 18 120/71 (87) 95 Nasal Cannula 3.5 01/04/18 15:22 36.5 51 18 120/64 (82) 96 Nasal Cannula 2.0 18 01/04/18 14:22 36.5 55 20 118/70 (86) 96 Nasal Cannula 2.0 69 01/04/18 13:22 36.6 51 18 118/69 (85) 97 Nasal Cannula 2.0 16 01/04/18 12:22 36.5 53 18 115/74 (88) 96 Nasal Cannula 2.0 18 01/04/18 12:00 95 Nasal Cannula 2.0 01/04/18 11:52 36.5 57 18 120/70 (87) 96 Nasal Cannula 2.0 18 01/04/18 11:43 36.9 56 20 103/62 (76) 95 Room Air 01/04/18 11:22 36.5 50 18 118/70 (86) 96 Nasal Cannula 2.0 18 01/04/18 11:07 36.5 49 18 114/68 (83) 96 Nasal Cannula 2.0 20 01/04/18 11:00 96 Nasal Cannula 2.0 01/04/18 11:00 36.5 45 18 112/68 (83) 96 Nasal Cannula 2.0 20 01/04/18 11:00 36.9 45 16 112/68 (83) 99 Room Air 5.0 45 01/04/18 10:38 74 16 118/66 (83) 99 Room Air 01/04/18 10:23 74 18 104/64 (77) 99 Mask 5 01/04/18 08:00 95 Nasal Cannula 2.0 01/04/18 07:36 36.9 57 20 96/59 (71) 93 Room Air 01/04/18 04:52 36.8 58 18 102/65 (77) 95 Nasal Cannula 2.0 01/04/18 04:00 Nasal Cannula 2.0 01/03/18 23:59 Nasal Cannula 2.0 01/03/18 23:40 36.7 94 20 86/58 (67) 95 Nasal Cannula 2.0 Physical Exam General Appearance: WD/WN, no apparent distress ENT: normal ENT inspection Neck: supple, no adenopathy Respiratory/Chest: chest non-tender, lungs clear, normal breath sounds Cardiovascular: regular rate, rhythm, no edema Abdomen: normal bowel sounds, non tender, soft Extremities: normal range of motion, non-tender Neurologic/Psychiatric: alert, oriented x 3 Skin: normal color Lymphatic: no adenopathy Laboratory Results Last 24 Hours Test 01/04/18 04:35 01/04/18 09:59 01/04/18 10:16 01/04/18 11:52 Activated Partial Thromboplast Time 77.6 SECONDS 169.0 SECONDS Partial Thromboplastin Ratio 3.0 6.5 Troponin I 1.450 ng/ml Kaolin Activated Coagulation Time 125 SECONDS 197 SECONDS Assessment and Plan N/V and SOB, Symptomatic bradycardia in a 57 yo male who does not regularly followup with PCP He does have history of cluster headaches Inferior AK EKG changes noted. Trop increased to above 1. Heart alert was called. Patient went to get a catherization today. Findings: The right coronary artery is moderate in caliber with a mid 85% stenosis at the origin of a small to moderate size RV branch. The RV branches had ostial 80% stenosis. Double lumen stent was placed. Patient will be on dual platelet therapy. patient on ASA and Ticagrelor SYMPTOMATIC BRADYCARDIA Patient currently not having symptoms will monitor HR Elevated BP Likely HTN will hold off meds due to bradycardia. Continued [facility] stay due to: home environment unsafe for pt
[2018-01-05] VITALS (8 sets, daily range): BP systolic 113–138; BP diastolic 69–81; PULSE 49–61; TEMP 36.4–37; O2SAT 94–95
[2018-01-05 05:55] LABS: BASO % 0.1 %; BASO ABS # 0.01 K/uL (0-0.2); EOS % 0.8 %; EOS ABS # 0.06 K/uL (0-0.5); HEMATOCRIT 42.8 % (42-52); HEMOGLOBIN 15.2 g/dL (14.0-18.0); IG# 0.01 K/uL (0.00-0.02); LYMPH % 25.4 %; MEAN CELL VOLUME 93.7 fL (80-100); MEAN CORPUSCULAR HEMOGLOBIN 33.3 pg (25-34); MEAN CORPUSCULAR HGB CONC 35.5 g/dl (32-36); MEAN PLATELET VOLUME 10.6 fL (7.4-10.4); MONO % 7.8 %; MONO ABS # 0.58 K/uL (0.11-0.59); NEUT % 65.8 %; NEUT ABS # 4.92 K/uL (1.4-6.5); PLATELET COUNT 111 K/uL (130-400); RED CELL DISTRIBUTION WIDTH CV 13.5 % (11.5-14.5); RED CELL DISTRIBUTION WIDTH SD 46.3 fL (36.4-46.3); WHITE BLOOD COUNT 7.48 K/uL (4.8-10.8)
[2018-01-05 06:08] LABS: PTT PATIENT 25.8 SECONDS (21.0-31.0)
[2018-01-05 06:28] LABS: CALCIUM 8.5 mg/dl (8.5-10.1); CREATININE 1.22 mg/dl (0.60-1.40); POTASSIUM 4.1 mmol/L (3.5-5.1)
[2018-01-05] MEDS: TICAGRELOR 90 MG TAB PO SCH (08:48)
[2018-01-05] MEDS: ATORVASTATIN 40 MG TAB PO SCH (08:48)
[2018-01-05] MEDS ORDERED: ASPIRIN 81 MG ECTAB PO SCH (09:00)
[2018-01-05] MEDS ORDERED: NURSING VERBAL MED ORDER ONE (09:15)
[2018-01-05] MEDS ORDERED: LORAZEPAM 2 MG/ML 1 ML VIAL IV ONE (09:45)
--- NOTE | 2018-01-05 12:58 | CARDIOLOGY PROGRESS NOTE ---
DATE: 01/05/2018 SUBJECTIVE: Mr. Lee is resting comfortably in bed without complaints of chest discomfort. He does note a sensation of not being able to take a deep breath. He feels this may be related to anxiety. OBJECTIVE: VITAL SIGNS: Blood pressure 123/81 with a regular pulse of 52. Respiratory is 18. The patient is afebrile at 36.8 degrees Celsius. Saturation is 95% on room air. NECK: Supple with full carotid upstrokes. No carotid bruits. Jugular venous pressure is flat at 90 degrees. There is no thyromegaly. CARDIOVASCULAR: Reveals a regular rhythm with normal S1 and S2. No S3, S4, or murmurs are noted. LUNGS: Clear without rales, rhonchi, or wheezes. ABDOMEN: Soft and nontender without bruits. EXTREMITIES: Reveal intact radial artery pulses bilaterally. There is no peripheral edema. Dressing across the right groin is dry and intact. No bruits. LABORATORY DATA: CBC notes a hemoglobin of 15.2, hematocrit 42.8, white count 7.4, and platelet count 111,000. Electrolytes note a sodium of 138, potassium 4.1, chloride 107, bicarbonate 25, BUN 18, creatinine 1.22, and glucose 98. monitoring and evaluation advisor is benign. EKG this morning notes normal sinus rhythm with a left axis deviation and evidence of an age indeterminate inferior myocardial infarction. Echocardiogram notes normal left ventricular systolic function without wall motion abnormalities. No significant valvular pathology. IMPRESSION AND PLAN: 1. Unstable angina pectoris - the patient had placement of a Xience drug-eluting stents for a 2.5 x 18 mm yesterday afternoon by Dr. Larose. He did also have a 50% obtuse marginal branch stenosis identified. Other arteries were free of disease. Continue aspirin, Brilinta, and atorvastatin. 2. Dyspnea -- suggests related to anxiety. We will administer a dose of intravenous Ativan and reassess later today. 3. Hypercholesterolemia -- agree with addition of atorvastatin at high doses. 4. Peripheral vascular disease -- status post aortobifemoral in 2014 at [facility]. 5. Disposition -- should be stable for hospital discharge later today.
--- NOTE | 2018-01-05 13:21 | ECHOCARDIOGRAM REPORT ---
*NOTICE TO RECEIVING REPUBLICAN AGENCY This information is strictly Confidential and protected under [place] law. [place] law prohibits you from making any further disclosure of this information unless further disclosure is expressly permitted by the written consent of the person to whom it pertains or is authorized by law. A general authorization for the release of medical or other information is not sufficient for this purpose. Hospital accepts no responsibility if the information is made available to any other person, INCLUDING THE PATIENT. Interpretation Summary * Name: PHUC HILL Study Date: 01/05/2018 06:40 AM BP: 113/69 mmHg * Patient Location: C.2T\S\E221\S\1 HR: 50 * : 1960 (M/d/yyyy) Gender: Male Height: 68 in * Age: 57 yrs Ethnicity: CA Weight: 141 lb * Ordering Physician: Ivan Larose * Referring Physician: Self, Referred * Performed By: Dayna Enriquez RDCS * * Reason For Study: AMI * BSA: 1.8 m2 * -- Conclusions -- * Left ventricular systolic function is normal. * No regional wall motion abnormalities noted. * Ejection Fraction = 60-65%. * No significant valvular pathology. Procedure Details * A complete two-dimensional transthoracic echocardiogram was performed (2D, M-mode, Doppler and color flow Doppler). Left Ventricle * The left ventricle is normal in size. * There is normal left ventricular wall thickness. * Ejection Fraction = 60-65%. * Left ventricular systolic function is normal. * No regional wall motion abnormalities noted. Right Ventricle * The right ventricle is normal size. * The right ventricular systolic function is normal as assessed by tricuspid annular plane systolic excursion (TAPSE) (normal >1.5 cm). Atria * The left atrial size is normal. * Right atrial size is normal. * No ASD detected; PFO is not assessed. Mitral Valve * The mitral valve anatomy is normal. * There is no mitral valve stenosis. * There is trace mitral regurgitation. Tricuspid Valve * The tricuspid valve anatomy is normal. * There is no tricuspid stenosis. * Significant tricuspid regurgitation is absent. Aortic Valve * The aortic valve is normal in structure and function. * No hemodynamically significant valvular aortic stenosis. * No aortic regurgitation is present. Pulmonic Valve * The pulmonary valve is not well seen, but the Doppler examination is normal without significant regurgitation or stenosis. Great Vessels * The aortic root is normal size. * The pulmonary is not well visualized. Pericardium/Pleural * There is no pericardial effusion. Great Vessels * Normal inferior vena cava size and collapsability with sniff indicates a normal right atrial pressure of 3 mmHg MMode 2D Measurements and Calculations IVSd 1.3 cm IVSs 1.5 cm LVIDd 3.3 cm LVIDs 2.3 cm LVPWd 1.4 cm LVPWs 2.0 cm IVS/LVPW 0.88 FS 29.4 % EDV(Teich) 43.1 ml ESV(Teich) 18.3 ml EF(Teich) 57.6 % EDV(cubed) 34.9 ml ESV(cubed) 12.3 ml EF(cubed) 64.8 % % IVS thick 16.9 % % LVPW thick 35.1 % LV mass(C)d 150.8 grams LV mass(C)dI 85.6 grams/m\S\2 LV mass(C)s 149.4 grams LV mass(C)sI 84.8 grams/m\S\2 SV(Teich) 24.8 ml SI(Teich) 14.1 ml/m\S\2 SV(cubed) 22.6 ml SI(cubed) 12.8 ml/m\S\2 Ao root diam 3.8 cm Ao root area 11.2 cm\S\2 LA dimension 2.9 cm LA/Ao 0.77 LVAd ap4 25.0 cm\S\2 LVLd ap4 8.2 cm EDV(MOD-sp4) 64.7 ml EDV(sp4-el) 64.4 ml LVAs ap4 14.2 cm\S\2 LVLs ap4 7.1 cm ESV(MOD-sp4) 24.8 ml ESV(sp4-el) 24.1 ml EF(MOD-sp4) 61.7 % EF(sp4-el) 62.5 % LVAd ap2 25.9 cm\S\2 LVLd ap2 8.5 cm EDV(MOD-sp2) 70.5 ml EDV(sp2-el) 67.4 ml LVAs ap2 13.6 cm\S\2 LVLs ap2 6.4 cm ESV(MOD-sp2) 25.2 ml ESV(sp2-el) 24.8 ml EF(MOD-sp2) 64.3 % EF(sp2-el) 63.3 % LVLd %diff 2.8 % EDV(MOD-bp) 68.3 ml LVLs %diff -11.11 % ESV(MOD-bp) 25.8 ml EF(MOD-bp) 62.2 % SV(MOD-sp4) 39.9 ml SI(MOD-sp4) 22.7 ml/m\S\2 SV(MOD-sp2) 45.4 ml SI(MOD-sp2) 25.8 ml/m\S\2 SV(MOD-bp) 42.5 ml SI(MOD-bp) 24.1 ml/m\S\2 SV(sp4-el) 40.2 ml SI(sp4-el) 22.8 ml/m\S\2 SV(sp2-el) 42.7 ml SI(sp2-el) 24.2 ml/m\S\2 Doppler Measurements and Calculations MV E max jerry 81.4 cm/sec MV A max jerry 44.8 cm/sec MV E/A 1.8 MV dec time 0.25 sec Ao V2 max 119.8 cm/sec Ao max PG 5.7 mmHg Ao max PG (full) 0.71 mmHg LV V1 max PG 5.0 mmHg LV V1 max 112.2 cm/sec
[2018-01-05] MEDS ORDERED: LPT40 PO (15:11)
[2018-01-05] MEDS ORDERED: LORA-741 PO (15:11)
[2018-01-05] MEDS ORDERED: BRL90 PO (15:11)
--- NOTE | 2018-01-05 15:15 | Discharge Instructions ---
Discharge Instructions Date of Service Jan 05, 2018. Admission Reason for Admission: Symptomatic Bradycardia Discharge Discharge Diagnosis / Problem: NSTEMI, s/p heart cath with stent placement Discharge Goals Goal(s): Decrease discomfort, Improve function Activity Recommendations Activity Limitations: resume your previous activity . Instructions / Follow-Up Instructions / Follow-Up Medications: - LIPITOR: 80mg daily, can cause some muscle aches so watch for this side effect , this lowers cholesterol but also protects against future heart attacks - ASPIRIN: 81mg daily - BRILINTA: 90mg twice a day - ATIVAN: 0.5mg every 8 hours as needed for anxiety NSTEMI (heart attack) inferior wall emergent heart cath on 01/04/18 with 85% blockage in right coronary artery treated with drug eluting stent prescribed Brilinta and aspirin, NEED to take without missing a dose for a year prescribed Lipitor 80mg daily follow up with Dr. De La Vega in several weeks, call for appointment Anxiety: use Ativan as needed FOLLOW UP - call PCP for follow up in 7-10 days - call Dr. De La Vega for appointment in several weeks Current Hospital Diet Patient's current hospital diet: Regular Diet, AHA Diet (Heart Healthy) Discharge Diet Recommended Diet: AHA Diet (Heart Healthy) Procedures Procedures Performed: Left heart catheterization 01/04/18 Pending Studies Studies pending at discharge: no Medical Emergencies . Who to Call and When: Medical Emergencies: If at any time you feel your situation is an emergency, please call 911 immediately. . Non-Emergent Contact Non-Emergency issues call your: Primary Care Provider, Hemotherapist Call Non-Emergent contact if: you have any medication questions . . "Provider Documentation" section prepared by Gael Mathew. . [place] Drug Monitoring Program Search Results: no issues identified
--- NOTE | 2018-01-06 08:04 | Discharge Summary ---
Discharge Summary Date of Service Jan 05, 2018. Discharge Summary Admission Date: Jan 03, 2018 at 16:23 Discharge Date: Jan 05, 2018 Discharge Disposition: Home Principal Diagnosis: NSTEMI Problems/Secondary Diagnoses: Dyslipidemia Anxiety Immunizations: Have You Had Influenza Vaccine: Unknown History of Tetanus Vaccine?: Unknown History of Pneumococcal: Unknown History of Hepatitis B Vaccine: Unknown Procedures: Cardiac catheterization on 01/04 with AJAY to the RCA Consultations: Cardiology Medication Reconciliation New Medications: Lorazepam (Ativan) 0.5 Mg Tab 0.5 MG PO Q8 PRN for Anxiety/Agitation, #30 TAB Atorvastatin (Lipitor) 40 Mg Tab 80 MG PO QAM, #60 TAB 3 Refills Ticagrelor (Brilinta) 90 Mg Tab 90 MG PO BID, #60 TAB 3 Refills Continued Medications: Aspirin (Aspirin Ec) 81 Mg Tab 81 MG PO DAILY Discharge Exam patient was feeling short of breath in the morning, said it was worse than the day prior. Lungs were clear, echocardiogram showed preserved EF and no wall motion abnormalities. discussed with Dr. Dennison, both of us felt that the dyspnea was more likely due to anxiety, patient admitted to feeling anxious. gave him a single dose of Ativan and he slept much better, felt calmer and shortness of breath resolved completely. patient was interested in going home. went over discharge instructions with him in regards to aspirin, Brilinta and Lipitor. plans to follow up with Dr. De La Vega in [place] after recommendation from Dr. Dennison. Review of Systems: Constitutional: No fever, No chills, No sweats, No weight loss, No weakness , No fatigue, No problem reported Eyes: No worsening of vision, No eye pain, No redness, No discharge, No diplopia, No problem reported ENT: No hearing loss, No unusual epistaxis, No nasal symptoms, No sore throat, No tinnitus, No dental problems, No trouble swallowing, No problem reported Respiratory: No cough, No sputum, No wheezing, No shortness of breath, No dyspnea on exertion, No dyspnea at rest, No hemoptysis, No problem reported Cardiovascular: No chest pain, No orthopnea, No PND, No edema, No claudication, No palpitations, No problem reported Abdomen: No pain, No nausea, No vomiting, No diarrhea, No constipation, No GI bleeding, No problem reported Musculoskeletal: No joint pain, No muscle pain, No swelling, No calf pain, No problem reported Genitourinary - Male: No hematuria, No dysuria, No urinary frequency, No urinary urgency Neurologic: No memory loss, No paralysis, No weakness, No numbness/tingling , No vertigo, No balance problems, No problem reported Psychiatric: + anxiety, No depression symptoms, No anhedonism, No insomnia, No substance abuse, No problem reported Hematologic / Lymphatic: No abnormal bleeding/bruising, No clotting problems , No swollen lymph nodes, No night sweats, No problem reported Integumentary: No rash, No itch, No new/changing skin lesions, No color change, No bleeding, No problem reported Physical Exam: General Appearance: WD/WN, no apparent distress Eyes: normal inspection, EOMI, sclerae normal ENT: normal ENT inspection, hearing grossly normal, pharynx normal Neck: supple, no adenopathy, no JVD, trachea midline Respiratory/Chest: chest non-tender, lungs clear, normal breath sounds, no respiratory distress, no accessory muscle use Cardiovascular: regular rate, rhythm, no edema, no gallop, no JVD, no murmur , normal peripheral pulses Abdomen / GI: normal bowel sounds, non tender, soft, no organomegaly Extremities: normal inspection, no calf tenderness, normal capillary refill , no pedal edema, normal range of motion, pelvis stable Neurologic/Psychiatric: service delivery supervisor II-XII nml as tested, no motor/sensory deficits , alert, normal mood/affect, normal reflexes, oriented x 3 Skin: normal color, warm/dry, no rash Lymphatic: no adenopathy Hospital Course 57 yo male presenting with nausea, vomiting, bradycardia and some chest pain, troponin trended upward and repeat EKG showed poor R wave progression heart alert called, taken to biology laboratory assistant urgently and found to have 85% lesion in RCA, AJAY placed patient tolerated well, had some anxiety the following day but his nausea/ vomiting and chest pain resolved completely - NSTEMI: inferior SC with atypical symptoms of intractable vomiting, some epigastric/chest pain heart cath on 01/04 with AJAY placed to the RCA tolerated well, no further symptoms vitals stable, some resting sinus bradycardia treat with aspirin and Brilinta (gave patient script for Plavix in case Brilinta not affordable) Lipitor 80mg could not initiate beta brionna due to bradycardia, blood pressure low normal so also did not start DANK inhibitor Dr. Dennison recommended follow up with Dr. Low with [facility] since the patient lives in [facility] - Anxiety: symptoms included dyspnea, insomnia and just generalized anxiety about current situation responded really well to Ativan provided with Ativan 0.5mg TID as needed, instructed to follow up with PCP in [place] Total Time Spent: Greater than 30 minutes This includes examination of the patient, discharge planning, medication reconciliation, and communication with other providers. Discharge Instructions Please refer to the electronic Patient Visit Report (Discharge Instructions) for additional information. Follow-Up PCP in [place] referral to Dr. De La Vega at [facility] Additional Copies To John De La Vega
[2018-01-08 12:39] LABS: HEPATITIS C RNA TMA QUAL Detected
== END 2018-01-05 17:15 | disposition home or self-care (01) | DRG 247 ==
LOC: C.EDB 12:17 → C.2T 16:23 → ENRESERV 16:42
PROVIDERS: ADMIT Internal Medicine Sports Medicine; ATTEND Internal Medicine
PROC: B2151ZZ Fluoroscopy of Left Heart using Low Osmolar Contrast (ICD-10-PCS; principal; 2018-01-04 09:31)
PROC: 027034Z Dilation of Coronary Artery, One Artery with Drug-eluting Intraluminal Device, Percutaneous Approach (ICD-10-PCS; principal; 2018-01-04 09:31)
PROC: B2111ZZ Fluoroscopy of Multiple Coronary Arteries using Low Osmolar Contrast (ICD-10-PCS; principal; 2018-01-04 09:31)
PROC: 4A023N7 Measurement of Cardiac Sampling and Pressure, Left Heart, Percutaneous Approach (ICD-10-PCS; principal; 2018-01-04 09:31)
DX: I21.4 Non-ST elevation (NSTEMI) myocardial infarction (principal); I25.110 Atherosclerotic heart disease of native coronary artery with unstable angina pectoris; R00.1 Bradycardia, unspecified; R03.0 Elevated blood-pressure reading, without diagnosis of hypertension; E78.00 Pure hypercholesterolemia, unspecified; E78.5 Hyperlipidemia, unspecified; I73.9 Peripheral vascular disease, unspecified; F41.1 Generalized anxiety disorder; F17.210 Nicotine dependence, cigarettes, uncomplicated; Z23 Encounter for immunization; Z95.820 Peripheral vascular angioplasty status with implants and grafts; Z82.49 Family history of ischemic heart disease and other diseases of the circulatory system; Z79.82 Long term (current) use of aspirin; Z88.8 Allergy status to other drugs, medicaments and biological substances